=== PATIENT | female | born 1985 | race Caucasian/White ===

== ENCOUNTER 2017-08-17 13:15 | Emergency (ER) | payer OTHER ==
[~2017-08-17] VITALS: Ht 167.6 cm; Wt 84.7 kg
[~2017-08-17 13:15] MED LIST: CORGARD80 MG PO; FOLIC ACID1 MG PO; KEFLEX500 MG PO; LACTULOSE10 GM/151 PO; LASIX80 MG PO; PROTONIX40 MG PO; SPIRONOLACTONE100 MG PO; TIROSINT75 MCG PO
[2017-08-17 16:19] VITALS: BP 125/77
[2017-08-17 16:57] LABS: TYPE OF FLUID PARACENTESIS
[2017-08-17 17:03] LABS: APPEARANCE HAZY/YELLOW; BODY FLUID RBC'S 1000 /MM^3 (0-100); BODY FLUID WBC'S 97 /MM^3 (0-500)
[2017-08-17 17:20] LABS: BODY FLUID EOSINOPHILS 1 % (0-25); MONONUCLEAR WBC'S 65 %; POLYNUCLEAR WBC'S 34 % (0-25)
== END 2017-08-17 16:19 | disposition short-term general hospital (02) ==
LOC: EME 13:15
PROVIDERS: Emergency Medicine
DX: K42.9 Umbilical hernia without obstruction or gangrene (principal); R18.8 Other ascites; K74.60 Unspecified cirrhosis of liver; K72.10 Chronic hepatic failure without coma
CPT/HCPCS: 87070; 87075; 87077; 87147; 87186; 87205; 89051; 99281; 99284